=== PATIENT | male | born 1965 | race Two or more races ===

== ENCOUNTER → 2022-08-29 | Outpatient (CLI) | payer MEDICAID ==
[2022-08-29 09:57] VITALS: BP 148/103
== END | disposition home or self-care (01) ==
LOC: XYW 07:32
PROVIDERS: ATTEND Internal Medicine
DX: R07.9 Chest pain, unspecified (principal); I10 Essential (primary) hypertension; E11.9 Type 2 diabetes mellitus without complications; K21.9 Gastro-esophageal reflux disease without esophagitis; F41.9 Anxiety disorder, unspecified; E66.01 Morbid (severe) obesity due to excess calories; Z68.42 Body mass index [BMI] 45.0-49.9, adult; Z11.6 Encounter for screening for other protozoal diseases and helminthiases
CPT/HCPCS: 78452; 93017; A9500